=== PATIENT | female | born 1985 | race Caucasian/White ===

== ENCOUNTER 2020-11-07 19:16 | Inpatient (IN) ==
[~2020-11-07 19:16] MED LIST: AZITHROMYCIN 500 MG in DEXTROSE 5% 250 ML IV SCH
[2020-11-07] MEDS ORDERED: LACTATED RINGER'S 1,000 ML IV SCH (21:30)
[2020-11-07] MEDS ORDERED: MoRPHine SULFATE PF 1 MG/ML 10 ML AMP/VIAL ONE (21:33)
[2020-11-07] MEDS ORDERED: CITRIC ACID/SODIUM CITRATE 15 ML UDC ONE (21:33)
[2020-11-07] MEDS ORDERED: ePHEDrine sulfate 50 MG/ML SYR ONE (21:33)
[2020-11-07] MEDS ORDERED: OXYTOCIN 10 UNITS/ML VIAL ONE (21:33)
--- NOTE | 2020-11-07 21:36 | History & Physical Report ---
Date of Service November 07, 2020 Assessment & Plan (1) premature rupture of membranes (PPROM) with unknown onset of labor: 35 y/o at 34 1/7 wga presents after PPROM. The completion of this note was delayed due to pt care. VSS Fetus cat 1 PPROM - on initial presentation, I did present to bedside where pt was resting comfortably and denying any abdominal pain. Shortly after my presentation to the room, I was called to delivery. During this time, nursing reports the pt was still comfortable. After I exited the delivery, nursing was told by the patient that she had become uncomfortable and so she relayed this to me. Within a few minutes, I was able to present to bedside and pt noted that ctx had actually begun while she was in the bed and rapidly worsened. SSE demonstrated gross pooling in the speculum SVE demonstrated cervix to be 3/75/-2 and cephalic. Due to apparent discomfort and contractions every few minutes, discussed that I would not be able to transfer her as would be preferred by peds team due to GA as I thought this would be unsafe and recommended delivery. I did offer vs CS as she had a CS previously scheduled and pt noted that she desired CS. Informed consent was obtained and anesthesia and peds teams were made aware. As teams were getting ready, pt continued to rapidly become more uncomfortable and so she was checked again approx 30 minutes later and she was 8cm. She was again asked if she would like a as she had previously noted that if she showed up in labor, she would want a vaginal delivery. Consent for including risk for uterine rupture being 1% and potential subsequent catastrophic results were reviewed and she verbalized understanding and desired to move forward. consent was then signed. Shortly thereafter, she then progressed to complete. Please see delivery note for details -GBS, GC/CT, UCx, UDS were obtained Epidural obtained History of Present Illness Chief Complaint: SROM, ctx Primary Care Provider: ALEJA PCP 35 y/o at 34 1/7 wga w/ MAGGIE 12/18 by LMP presents with complaint of LOF around 430pm. Had sex this AM around 1030 and had a few BH ctx. Around 430, she went to the bathroom because she felt like she was leaking but continued to leak afterwards and subsequently called and told to come in. On arrival, +FM and LOF, denied ctx or VB. PNI: CS x 1 ([facility]) - NRFHT after PPROM, failed vacuum PPROM/PTD at 36 wks Subutex use - 22mg, 16 in AM and 6 in PM w/ [facility] AMA BMI 42 Past OBGYN Hx: G1 2017 at 36 wks - PPROM, failed vacuum, NRFHT G2 current Menarche 10, regular cycles Allergies Allergy/AdvReac Type Severity Reaction Status Date / Time sulfamethoxazole Allergy hives, Verified 11/04/20 16:13 [From Bactrim] vertigo trimethoprim [From Bactrim] Allergy hives, Verified 11/04/20 16:13 vertigo Home Medications Medication Instructions Recorded Confirmed Type prenat.vits,anjel,vtc-tcec-nqzoj 1 tab PO DAILY 05/04/20 11/07/20 History buprenorphine HCl See Rx Instructions .ROUTE .COMPLEX 11/07/20 11/07/20 History Patient History Medical History History of chicken pox Opioid abuse Surgical History S/P appendectomy S/P section S/P dilatation and curettage S/P unilateral salpingo-oophorectomy left Family History Mother Epilepsy Father Epilepsy Grandmother (Maternal) Diabetes Denies family history of Ovarian cancer Breast cancer Colorectal cancer Social History (Updated 11/07/20 @ 23:15 by Lucila Mendiola MD) Smoking Status: Never smoker Cigarettes Per Day: 10; Hx Alcohol Use: No Hx Substance Use: Yes Substance Use Type Other:: buprenorphine Preferred Language: Sinhala Bad Work Gatherer Required: No Beliefs That Will Affect Care: None marital status: marital status details: Matti Holderchristian (33) [phone] Current Living Situation: Spouse current occupational status: employed current occupation: [employer] Other Information That Helps Us Care for You: No Feels Safe at Home: Yes Safety Concerns: Feels Safe At This Time Assistive Devices: None Physical Exam Constitutional: WD/WN, vitals as above Respiratory: normal respiratory effort; no respiratory distress and no labored breathing Psychiatric: A+Ox3, euthymic affect Genitourinary: OB Exam Abdomen: + vertex Manual OB Exam: + cervical dilation 3 cm, + cervical effacement 90%, + station -2 and + amniotic fluid (grossly ruptured, obvious pooling with insertion of speculum) clear and nitrazine positive OB Exam Monitor Tracing: + external FHT monitor used, + external uterine monitor used (initially irreg ctx, became q3-4) and + category I (135/mod/+accel/decel) Results & Data ([facility]) Vital Signs (Past 12 Hours) Vital Signs Temp Pulse Resp BP 11/07/20 19:56 78 131/74 11/07/20 19:34 98.6 F 18 11/07/20 19:32 98 H 143/86 H Laboratory Results OB Labs: Blood Type O Positive 05/11/20 Antibody Screen NEGATIVE 05/11/20 Hemoglobin 12.0 g/dL (12.0-16.0) 10/02/20 Hematocrit 35.0 % (37-47) L 10/02/20 Mean Corpuscular Volume 91.5 fL (80-100) 05/11/20 Platelet Count 250 K/uL (130-400) 05/11/20 Rubella IgG Antibody Immune (Immune) 05/11/20 Rapid Plasma Reagin Nonreactive (Nonreactive) 05/11/20 Hepatitis B Surface Antigen Neg (Neg) 05/11/20 HIV (1&2) Ab and P24 Ag, 4th Gener Neg (Neg) 05/11/20 Glucose 1 Hour 50 gm Load 125 mg/dl (70-130) 10/02/20 Maternal Serum Alpha Fetoprotein 39.6 ng/mL 07/08/20 OB Optional Labs: Chlamydia trachomatis RNA NOT DETECTED (NOT DETECTED) 05/11/20 Neisseria gonorrhoeae RNA NOT DETECTED (NOT DETECTED) 05/11/20 Alpha Fetoprotein Triple Screen SEE NOTE 07/08/20 Labs Reviewed: panorama low risk 06/08/20 Diagnostic Findings Anterior placenta 10/16 EFW 88% Code Status & VTE Plan VTE Prophylaxis Plan VTE Prophylaxis will be ordered: Yes Coding Level of Care Code None Diagnoses premature rupture of membranes (PPROM) with unknown onset of labor O42.919
[2020-11-07] MEDS ORDERED: BUPIVACAINE 0.25% 30 ML VIAL ONE (21:40)
[2020-11-07] MEDS ORDERED: ePHEDrine sulfate 50 MG/ML AMP ONE (21:40)
[2020-11-07] MEDS ORDERED: SODIUM CHLORIDE 0.9% INJ 10 ML VIAL ONE (21:40)
[2020-11-07] MEDS ORDERED: fentaNYL citrate 100 MCG/2 ML VIAL ONE (21:40)
[2020-11-07] MEDS ORDERED: fentaNYL 2MCG/ML ROPIVACAINE 1.25MG/ML 100 ML BAG EPI ONE (21:41)
[2020-11-07] MEDS ORDERED: PENICILLIN G POTASSIUM 6 MU in DEXTROSE 5% 250 ML IV ONE (21:43)
[2020-11-07 21:45] LABS: Hematocrit (blood only) 35.4 % (37-47); Hemoglobin 12.7 g/dL (12.0-16.0); Mean Corpuscular Hemoglobin 32.9 pg (25-34); Mean Corpuscular Volume 91.7 fL (80-100); Platelet Count 258 K/uL (130-400); RDW Coefficient of Variation 13.4 % (11.5-14.5); RDW Standard Deviation 44.7 fL (36.4-46.3); Red Blood Count 3.86 M/uL (4.2-5.4); White Blood Count 14.52 K/uL (4.8-10.8)
[2020-11-07] MEDS ORDERED: CITRIC ACID/SODIUM CITRATE 15 ML UDC PO SCH (21:45)
[2020-11-07 21:46] LABS: Mean Corpuscular Hgb Conc 35.9 g/dL (32-36)
[2020-11-07] MEDS ORDERED: OXYTOCIN 30 UNITS/500ML NSS ONE (21:51)
--- NOTE | 2020-11-07 22:09 | Anesthesiology Consultation ---
Date of Service November 07, 2020 Assessment & Plan Chart Review Chart Review: Acceptable Risk for Labor Epidural Consults Requested none History Surgery Operation Date: 11/07/20 21:30 Proposed Procedures p Section in LD - Lucila Mendiola MD Height/Weight Height: 5 ft 5 in Weight: 113.398 kg Allergies Allergy/AdvReac Type Severity Reaction Status Date / Time sulfamethoxazole Allergy hives, Verified 11/04/20 16:13 [From Bactrim] vertigo trimethoprim [From Bactrim] Allergy hives, Verified 11/04/20 16:13 vertigo Medications Home Medications Medication Instructions Recorded Confirmed Last Taken prenat.vits,anjel,paj-jbyv-zemnl 1 tab PO DAILY 05/04/20 11/07/20 11/07/20 08:00 buprenorphine HCl See Rx Instructions .ROUTE .COMPLEX 11/07/20 11/07/20 Unknown Past Medical History Medical History History of chicken pox Opioid abuse Past Family History Family History Mother Epilepsy Father Epilepsy Grandmother (Maternal) Diabetes Denies family history of Ovarian cancer Breast cancer Colorectal cancer Past Surgical History Surgical History S/P section S/P dilatation and curettage S/P unilateral salpingo-oophorectomy Social History Smoking Status: Never smoker tobacco type: cigarettes Smoking cigarettes per day: 10 Hx Alcohol Use: No Hx Substance Use: Yes substance use type: does not use Substance Use Type Other:: suboxane - currently on Physical Exam Vital Signs Last Vital Signs Temp 37.0 C 11/07/20 19:34 Pulse 103 H 11/07/20 21:54 Resp 18 11/07/20 19:34 BP 141/64 H 11/07/20 21:54 Testing Laboratory Results 11/07/20 21:36
[2020-11-07] MEDS ORDERED: LIDOCAINE 1% LOCAL 20 ML VIAL ONE (22:12)
--- NOTE | 2020-11-07 22:55 | Delivery Summary ---
Vaginal Delivery Summary Date of Service November 07, 2020 PREOPERATIVE DIAGNOSIS: 1. Single intrauterine at 34 1/7 wga 2. History of CS x 1 3. premature rupture of membranes 4. labor 5. History of PPROM and PTD 6. AMA 7. Subutex use POSTOPERATIVE DIAGNOSIS: 1. Single intrauterine at 34 1/7 wga 2. History of CS x 1 3. premature rupture of membranes 4. labor 5. History of PPROM and PTD 6. AMA 7. Subutex use 8. Suspected chorioamnionitis 9. Delivered PROCEDURE: 1. Vaginal after SURGEON: Lucila Mendiola MD ANESTHESIA: Epidural. ESTIMATED BLOOD LOSS: 300 mL FLUIDS: Continuous LR. URINE OUTPUT: None. COMPLICATIONS: None. CONDITION: Stable. INDICATIONS: 35 y/o at 34 1/7 wga presented with complaint of LOF. On initial presentation, she denies abdominal pain or contractions. While awaiting evaluation, nursing noted that she rapidly became more uncomfortable. SSE demonstrated gross pooling in the speculum while SVE demonstrated cervix to be 3/75/-2 and cephalic. Due to apparent discomfort and contractions every few minutes, discussed that I would not be able to transfer her as would be preferred by peds team due to GA as I thought this would be unsafe and recommended delivery. I did offer vs CS as she had a CS previously scheduled and pt noted that she desired CS. Informed consent was obtained and anesthesia and peds teams were made aware. As teams were getting ready, pt continued to rapidly become more uncomfortable and so she was checked again approx 30 minutes later and she was 8cm. She was again asked if she would like a as she had previously noted that if she showed up in labor, she would desire . Consent for including risk for uterine rupture being 1% and potential subsequent catastrophic results were reviewed and she verbalized understanding and desired to . consent was then signed. Penicillin was initiated, however incomplete due to rapid labor. Epidural was able to be obtained. She then progressed to complete and desired to push. FINDINGS: A viable male infant with Apgars of 3, 6, and 8 at 1, 5, and 10 minutes respectively. Of note, fluid was noted to have very foul odor, suspicious for chorioamnionitis. SPECIMEN: Cord gases, cord blood, placenta OPERATIVE REPORT: The patient progressed to 10 cm, 100% effaced and +2 station, pushed over intact perineum with anesthesia to deliver a viable male infant, Apgars as above. Head of delivered in ELLA position. No nuchal cord was present. Body and shoulders were delivered without difficulty. Delayed cord clamping was deferred due to non-vigorous and was delivered to awaiting pediatrics staff. Cord was clamped and cut. Cord segment and blood was obtained. Placenta delivered spontaneously intact with 3-vessel cord. IV oxytocin and fundal massage were given for excellent hemostasis. Vagina, cervix, perineum, and placenta were inspected. A vaginal laceration was noted and repaired in the usual fashion using 3-[address]-1. Sponge and needle counts correct x2. No sponges were left behind. Mother and stable in immediate period. Vaginal Delivery Summary (Repair of vaginal laceration) MNP Vaginal Delivery Charge Vaginal Delivery Codes: 20607 global code for the antepartum, delivery, and post- Delivery Type Details: (Repair of vaginal laceration)
[2020-11-07 23:09] LABS: Base Excess Cord Arterial Bld -7.5 mEq/L (-9-1.8); CO2 Cord Arterial Blood 68 mmHg (39.1-73.5); HCO3 Cord Arterial Blood 23 mmol/L (19.7-28.5); Oxygen Sat Cord Arterial Blood < 60.0 % (<60); pH Cord Arterial Blood 7.14 (7.1-7.38)
[2020-11-07 23:10] LABS: PO2 Cord Arterial Blood < 10 mmHg (4.1-31.7)
[2020-11-07 23:11] LABS: Base Excess Cord Venous Blood -7.4 mEq/L (-7.7-1.9); Cord Venous Blood HCO3 23 mmol/L (18.4-26.8); Cord Venous Blood PCO2 68 mmHg (30.4-57.2); Cord Venous Blood PO2 15 mmHg (14.1-43.3); Cord Venous Blood pH 7.15 (7.20-7.44); O2 Saturation Cord Venous Bld < 60.0 % (<68)
--- NOTE | 2020-11-07 23:28 | Anesthesia Procedure Note ---
Date of Service November 07, 2020 Anesthesia Post Epidural Note Vital Signs Vital Signs: Temp Pulse Resp BP 37.0 C 71 18 115/60 11/07/20 19:34 11/07/20 23:23 11/07/20 19:34 11/07/20 23:23 Notes Mental Status: alert / awake / arousable Nausea / Vomiting: adequately controlled Pain: adequately controlled Airway Patency, RR, SpO2: stable & adequate BP & HR: stable & adequate Hydration State: stable & adequate Neuraxial Anesthesia: was administered and sensory block is resolving Anesthetic Complications: no major complications apparent and Pt Satisfied with anesthetic care Epidural: Removed without complications and With tip intact
[2020-11-07] MEDS ORDERED: SUPERCREAM 0.870% 15 GM JAR EXT PRN (23:41)
[2020-11-07] MEDS ORDERED: bisacodyL 10 MG SUPP PR PRN (23:41)
[2020-11-07] MEDS ORDERED: BENZOCAINE 20% AER SPR 82.5 GM CAN EXT PRN (23:41)
[2020-11-07] MEDS ORDERED: OXYTOCIN 30 UNITS/500 ML BAG IV PRN (23:41)
[2020-11-07] MEDS ORDERED: HYDROCORTISONE ACETATE 25 MG SUPP PR PRN (23:41)
[2020-11-07] MEDS ORDERED: DIPHTHERIA/TETANUS/PERTUSSIS 0.5 ML SYR/VIAL IM ONE (23:41)
[2020-11-08 00:17] LABS: Amphetamines+Metham, Urine Neg (Neg); Barbiturates, Urine Neg (Neg); Benzodiazepine, Urine Neg (Neg); Cocaine, Urine Neg (Neg); MDMA (Ecstacy), Urine Neg (Neg); Methadone, Urine Neg (Neg); Opiate, Urine Neg (Neg); Phencyclidine, Urine Neg (Neg)
[2020-11-08] MEDS: IBUPROFEN 600 MG TAB PO PRN ×3 (03:59→20:27)
[2020-11-08 06:34] LABS: Hematocrit (blood only) 31.1 % (37-47); Hemoglobin 10.7 g/dL (12.0-16.0); Mean Corpuscular Hemoglobin 32.8 pg (25-34); Mean Corpuscular Hgb Conc 34.4 g/dL (32-36); Mean Corpuscular Volume 95.4 fL (80-100); Mean Platelet Volume 10.3 fL (7.4-10.4); Platelet Count 230 K/uL (130-400); RDW Coefficient of Variation 13.4 % (11.5-14.5); RDW Standard Deviation 46.5 fL (36.4-46.3); Red Blood Count 3.26 M/uL (4.2-5.4); White Blood Count 12.94 K/uL (4.8-10.8)
[2020-11-08] MEDS: PRENATAL VITAMIN 1 TAB PO SCH (08:23)
[2020-11-08] MEDS: DOCUSATE SODIUM 100 MG CAP PO SCH ×2 (08:23→20:27)
[2020-11-08] MEDS: FERROUS SULFATE 325 MG TAB PO SCH (08:23)
[2020-11-08] MEDS: buprenorphine HCL 8 MG SUBL SL SCH ×2 (08:24→08:30)
--- NOTE | 2020-11-08 10:59 | Obstetrical Progress Note ---
Date of Service November 08, 2020 Assessment & Plan (1) state: 35 yo PP1 from after PPROM and PTL, doing well -Meeting all pp milestones -O+/rubella immune -f/u 6 weeks for appt -pt strongly desires d/c at 24 hrs due to baby having been transferred. I think as long as ok today, can go after 24 hr parish but would rec temperature monitoring after d/c due to odor noted in fluid at delivery. However, if any issues, rec stay overnight again. pt in agreement Subjective Ambulation: ambulating normally Voiding: no voiding problems Passing Gas:: Yes Diet Tolerance:: regular diet Lochia:: Small Feeding Type:: breast feeding Pain well managed with medication Review of Systems Denies fevers, chills, n/v, WATKINS, CP, SOB Physical Exam Constitutional WD/WN, vitals as above no acute distress Respiratory normal respiratory effort, lungs clear to auscultation Cardiovascular RRR, no murmur, no edema Gastrointestinal (Abdomen) Inspection/Auscultation: + abdominal surgical scar (c/d/i) Percussion/Palpation: abdomen soft; abdomen nontender fundus firm at umbilicus and NT Musculoskeletal BLE symmetric, nonerythematous, nontender Results & Data ([facility]) Vital Signs (Past 12 Hours) Vital Signs Temp Pulse Pulse Resp BP BP Pulse Ox 11/08/20 08:38 98.2 F 59 L 20 99/62 L 11/08/20 04:00 98.2 F 64 18 143/74 H 97 11/08/20 01:30 98.4 F 76 76 18 120/74 120/74 98 11/08/20 00:43 90 135/74 11/08/20 00:33 72 119/55 L 11/08/20 00:23 71 119/64 11/08/20 00:05 18 11/08/20 00:03 82 120/64 11/07/20 23:53 88 111/59 L 11/07/20 23:43 63 114/63 11/07/20 23:35 18 11/07/20 23:33 54 L 113/63 11/07/20 23:23 71 115/60 11/07/20 23:20 18 11/07/20 23:13 58 L 121/61 11/07/20 23:05 18 11/07/20 23:03 70 120/59 L
[2020-11-08] MEDS: ACETAMINOPHEN 325 MG TAB PO PRN ×2 (11:24→21:56)
[2020-11-08] MEDS: buprenorphine HCL 2 MG SUBL SL SCH (17:19)
[2020-11-08] MEDS ORDERED: bisacodyL 5 MG TABEC PO SCH (20:00)
[2020-11-08] MEDS ORDERED: GENTAMICIN CONSULT ACTIVE PRN (22:17)
--- NOTE | 2020-11-08 22:23 | Obstetrical Progress Note ---
Date of Service November 08, 2020 Assessment & Plan (1) Endometritis: Suspect endometritis due to foul odor at delivery, temp and uterine tenderness. Due to rapidity of delivery and no treatment either, will start amp/gent/clinda and order CBC. Pt aware will not be able to be discharged as she would like to see baby, however, needs tx before can go Admission and Anticipated Discharge Date Admission Date: November 07, 2020 Subjective Nursing made me aware of T38. Pt endorsing chills and overall feeling poor with myalgias, fatigued, now feeling febrile. Had cramping earlier. Denies foul discharge, WATKINS, CP, SOB, foul odor with urine. Physical Exam Constitutional: WD/WN, vitals as above Respiratory: normal respiratory effort, lungs clear to auscultation Cardiovascular: RRR, no murmur, no edema Gastrointestinal (Abdomen): Inspection/Auscultation: abdomen normal to inspection Percussion/Palpation: + abdomen tender (uterus mod tender to palpation) and abdomen soft; no guarding Results & Data ([facility]) Vital Signs (Past 12 Hours) Vital Signs Temp Pulse Resp BP Pulse Ox 11/08/20 21:52 100.8 F H 11/08/20 20:00 99.9 F H 102 H 18 125/81 11/08/20 18:58 98.1 F 71 18 115/75 97 11/08/20 16:00 98.1 F 71 18 115/75 11/08/20 12:30 98.1 F 58 L 20 114/66 PG Care Time/CCT Total # of Minutes Spent Total Time Spent with Patient: Total time spent is greater than 50% in coordination of care (as documented) at patient's floor/unit and/or counseling patient: Coding Level of Care Code None Diagnoses Endometritis N71.9
[2020-11-08 22:36] LABS: Basophils # (auto) 0.02 K/uL (0-0.2); Basophils % (auto) 0.2 %; Eosinophils # (auto) 0.02 K/uL (0-0.5); Eosinophils % (auto) 0.2 %; Hematocrit (blood only) 35.3 % (37-47); Hemoglobin 12.1 g/dL (12.0-16.0); Immature Granulocytes # (auto) 0.03 K/uL (0.00-0.02); Immature Granulocytes % (auto) 0.2 %; Lymphocytes # (auto) 1.05 K/uL (1.2-3.4); Lymphocytes % (auto) 8.7 %; Mean Corpuscular Hemoglobin 33.5 pg (25-34); Mean Corpuscular Volume 97.8 fL (80-100); Monocytes # (auto) 1.25 K/uL (0.11-0.59); Monocytes % (auto) 10.4 %; Neutrophils # (auto) 9.68 K/uL (1.4-6.5); Neutrophils % (auto) 80.3 %; Platelet Count 212 K/uL (130-400); RDW Coefficient of Variation 13.8 % (11.5-14.5); RDW Standard Deviation 49.4 fL (36.4-46.3); Red Blood Count 3.61 M/uL (4.2-5.4); White Blood Count 12.05 K/uL (4.8-10.8)
[2020-11-08 22:46] LABS: Mean Corpuscular Hgb Conc 34.3 g/dL (32-36)
[2020-11-08] MEDS: AMPICILLIN 2,000 MG in SODIUM CHLOR 0.9% AD-VAN 100 ML IV SCH (22:51)
[2020-11-08] MEDS ORDERED: GENTAMICIN SULFATE 400 MG in DEXTROSE 5% 100 ML IV SCH (23:00)
[2020-11-08 23:57] LABS: Creatinine Clr Calc Pharmacy 132.5 ml/min; Est GFR (African American) 121.9 ml/min; Est GFR (Non-African American) 105.2 ml/min
[2020-11-09] MEDS: IBUPROFEN 600 MG TAB PO PRN ×3 (00:02→18:11)
[2020-11-09] MEDS: CLINDAMYCIN 900 MG in DEXTROSE 5% 50 ML IV SCH ×3 (00:03→17:19)
[2020-11-09] MEDS: GENTAMICIN SULFATE IV SCH (00:59)
[2020-11-09] MEDS: DEXTROSE 5% IV SCH (00:59)
[2020-11-09] MEDS: NICOTINE 21 MG/24 HR TDSY TD SCH ×2 (00:59→08:30)
[2020-11-09 01:48] LABS: Appearance Urine Turbid (Clear); Bilirubin Urine Negative (Negative); Blood Urine 3+ (Negative); Color Urine Yellow; Glucose Urine UA Negative (Negative); Ketones Urine Negative (Negative); Leukocyte Esterase Urine 3+ (Negative); Nitrite Urine Positive (Negative); Protein Urine 1+ (Negative); RBC Urine Automated >30 /hpf (0-4); Specific Gravity Urine 1.017 (1.000-1.030); Urobilinogen Urine Negative (Negative); WBC Urine Automated >30 /hpf (0-5); pH Urine 6.5 (4.5-7.5)
[2020-11-09 02:20] LABS: Cast Urine Automated 0 /lpf (0-5); Epithelial Cell Urine Auto >30 /lpf (0-5); Mucus Urine Present (None Prsent)
[2020-11-09 02:21] LABS: Bacteria Urine Automated 1+ (Negative)
[2020-11-09] MEDS: AMPICILLIN 2,000 MG in SODIUM CHLOR 0.9% AD-VAN 100 ML IV SCH ×4 (05:32→23:00)
--- NOTE | 2020-11-09 05:56 | Pharmacy Report ---
Pharmacy Abx Initial Consult - Date of Service November 09, 2020 - Pharmacy Dosing Scope Date of Consult: 11/08/20 Consultation requested by: Dr. Briscoe Pharmacy is consulted to initiate IV Gentamicin dosing therapy, order appropriate labs and adjust drug dose/frequency. - Subjective The patient is a 35 year old F admitted on 11/07/20 21:20 for labor and delivery. Patient is and developed possible Endometritis. Dr. Mendiola started IV Ampicillin 2gm IV every 6 hours, Clindamycin 900mg every 8 hours and Gentamicin per pharmacy. I ordered baseline serum creatinine to assure that patients CrCL was greater than 60ml/min. Pharmacy will continue to monitor and dose Gentamicin going forward. - Objective Height: 5 ft 5 in Weight: 113.398 kg Vital Signs (Past 12hrs): Vital Signs Temp Pulse Resp BP Pulse Ox 11/09/20 01:05 37.1 C 11/08/20 23:50 38.2 C H 97 H 20 110/65 96 11/08/20 21:52 38.2 C H 11/08/20 20:00 37.7 C H 102 H 18 125/81 11/08/20 18:58 36.7 C 71 18 115/75 97 Lab Results (24hrs): Laboratory Tests (24 Hours) 11/08/20 11/08/20 11/08/20 23:24 22:27 06:13 WBC 12.05 H 12.94 H Neut # (Auto) 9.68 H Creatinine 0.73 Est Cr Clr Drug Dosing 132.5 Micro Results: 11/09/20 01:00 Urine Culture - Pending Urine,Clean Catch 11/07/20 22:26 Urine Culture - Pending Urine,Straight Cath - Assessment & Plan Assessment 35 year old F with Endometritis Plan Gentamicin * Patient meets criteria for extended-interval aminoglycoside dosing * Dose: 570mg (5 mg/kg) based on actual body weight every 24 hours * Will monitor renal function and will check levels if therapy exceeds 72 hours Pharmacy will continue to follow and will adjust dose/frequency as necessary. Thank you.
[2020-11-09] MEDS: ACETAMINOPHEN 325 MG TAB PO PRN ×2 (06:41→17:25)
--- NOTE | 2020-11-09 06:45 | Obstetrical Progress Note ---
Date of Service November 09, 2020 Assessment & Plan (1) state: 35 yo PP2 from after PPROM and PTL -O+/rubella immune/formula -encourage to ambulate today when feeling better from endometritis -f/u 6 weeks for appt (2) Endometritis: Dx w/ endometritis evening of 11/08 due to temp, fundal tenderness -started on amp/gent/clinda, plan to continue for 24-48 hours afebrile -Last temp this AM but not yet on antibiotics for 24 hours, will continue to monitor -tylenol/ibuprofen to defervesce -UA suggestive of UTI, however this was clean catch vs the straight cath from admission UA so suspect lochia is affecting how it looks as she denies urinary symptoms Subjective Ambulation: ambulating normally Voiding: no voiding problems Passing Gas:: Yes Diet Tolerance:: regular diet Lochia:: Small Feeding Type:: bottle feeding Pain well managed with medication but does have same worsened uterine tenderness from last evening. Feels febrile and intermittent chills. Denies pain or burning with urination, pressure symptoms Review of Systems Denies n/v, WATKINS, CP, SOB Physical Exam Constitutional WD/WN, vitals as above no acute distress Respiratory normal respiratory effort, lungs clear to auscultation Cardiovascular RRR, no murmur, no edema Gastrointestinal (Abdomen) Percussion/Palpation: abdomen soft; abdomen nontender fundus firm at umbilicus, tender to palpation Musculoskeletal BLE symmetric, nonerythematous, nontender Results & Data ([facility]) Vital Signs (Past 12 Hours) Vital Signs Temp Pulse Resp BP Pulse Ox 11/09/20 05:30 101.1 F H 107 H 20 120/72 98 11/09/20 01:05 98.8 F 11/08/20 23:50 100.8 F H 97 H 20 110/65 96 11/08/20 21:52 100.8 F H 11/08/20 20:00 99.9 F H 102 H 18 125/81 11/08/20 18:58 98.1 F 71 18 115/75 97 Laboratory Results 11/09/20 11/08/20 11/08/20 Range/Units 01:00 23:24 22:27 WBC 12.05 H (4.8-10.8) K/uL RBC 3.61 L (4.2-5.4) M/uL Hgb 12.1 (12.0-16.0) g/dL Hct 35.3 L (37-47) % MCV 97.8 (80-100) fL MCH 33.5 (25-34) pg MCHC 34.3 (32-36) g/dL RDW Std Deviation 49.4 H (36.4-46.3) fL RDW Coeff of Aleksey 13.8 (11.5-14.5) % Plt Count 212 (130-400) K/uL MPV 10.0 (7.4-10.4) fL Immature Gran % (Auto) 0.2 % Neut % (Auto) 80.3 % Lymph % (Auto) 8.7 % Gates % (Auto) 10.4 % Eos % (Auto) 0.2 % Baso % (Auto) 0.2 % Neut # (Auto) 9.68 H (1.4-6.5) K/uL Lymph # (Auto) 1.05 L (1.2-3.4) K/uL Gates # (Auto) 1.25 H (0.11-0.59) K/uL Eos # (Auto) 0.02 (0-0.5) K/uL Baso # (Auto) 0.02 (0-0.2) K/uL Immature Gran # (Auto) 0.03 H (0.00-0.02) K/uL Creatinine 0.73 (0.6-1.2) mg/dl Est Cr Clr Drug Dosing 132.5 ml/min Est GFR ( Amer) 121.9 ml/min Est GFR (Non-Af Amer) 105.2 ml/min Urine Color Yellow Urine Appearance Turbid A (Clear) Urine pH 6.5 (4.5-7.5) Ur Specific [place] 1.017 (1.000-1.030) Urine Protein 1+ H (Negative) Urine Glucose (UA) Negative (Negative) Urine Ketones Negative (Negative) Urine Blood 3+ H (Negative) Urine Nitrite Positive A (Negative) Urine Bilirubin Negative (Negative) Urine Urobilinogen Negative (Negative) Ur Leukocyte Esterase 3+ H (Negative) Urine WBC (Auto) >30 H (0-5) /hpf Urine RBC (Auto) >30 H (0-4) /hpf U Hyaline Cast (Auto) 0 (0-5) /lpf U Epithel Cells (Auto) >30 H (0-5) /lpf Urine Bacteria (Auto) 1+ H (Negative) Urine Mucus Present A (None Prsent) Urine Yeast Not Reportable
[2020-11-09 06:52] LABS: Hematocrit (blood only) 33.3 % (37-47); Hemoglobin 11.3 g/dL (12.0-16.0)
[2020-11-09] MEDS ORDERED: FLUCONAZOLE 50 MG TAB PO ONE (07:22)
[2020-11-09] MEDS: DOCUSATE SODIUM 100 MG CAP PO SCH ×2 (08:30→20:20)
[2020-11-09] MEDS: FERROUS SULFATE 325 MG TAB PO SCH (08:30)
[2020-11-09] MEDS: PRENATAL VITAMIN 1 TAB PO SCH (08:30)
[2020-11-09] MEDS: buprenorphine HCL 8 MG SUBL SL SCH (10:02)
[2020-11-09] MEDS: buprenorphine HCL 2 MG SUBL SL SCH (17:20)
[2020-11-09 19:17] LABS: Basophils # (auto) 0.01 K/uL (0-0.2); Basophils % (auto) 0.1 %; Eosinophils # (auto) 0.02 K/uL (0-0.5); Eosinophils % (auto) 0.1 %; Hematocrit (blood only) 33.1 % (37-47); Hemoglobin 11.1 g/dL (12.0-16.0); Immature Granulocytes # (auto) 0.03 K/uL (0.00-0.02); Immature Granulocytes % (auto) 0.2 %; Lymphocytes # (auto) 1.31 K/uL (1.2-3.4); Lymphocytes % (auto) 9.6 %; Mean Corpuscular Hemoglobin 32.5 pg (25-34); Mean Corpuscular Volume 96.8 fL (80-100); Mean Platelet Volume 10.3 fL (7.4-10.4); Monocytes # (auto) 0.94 K/uL (0.11-0.59); Monocytes % (auto) 6.9 %; Neutrophils # (auto) 11.37 K/uL (1.4-6.5); Neutrophils % (auto) 83.1 %; Platelet Count 199 K/uL (130-400); RDW Coefficient of Variation 13.9 % (11.5-14.5); RDW Standard Deviation 49.2 fL (36.4-46.3); Red Blood Count 3.42 M/uL (4.2-5.4); White Blood Count 13.68 K/uL (4.8-10.8)
[2020-11-09 19:22] LABS: Mean Corpuscular Hgb Conc 33.5 g/dL (32-36)
[2020-11-10] MEDS: CLINDAMYCIN 900 MG in DEXTROSE 5% 50 ML IV SCH ×3 (00:42→16:56)
[2020-11-10] MEDS: DEXTROSE 5% IV SCH (01:20)
[2020-11-10] MEDS: GENTAMICIN SULFATE IV SCH (01:20)
[2020-11-10] MEDS: ACETAMINOPHEN 325 MG TAB PO PRN (02:28)
[2020-11-10] MEDS: AMPICILLIN 2,000 MG in SODIUM CHLOR 0.9% AD-VAN 100 ML IV SCH ×3 (05:10→17:30)
--- NOTE | 2020-11-10 07:48 | Obstetrical Progress Note ---
Date of Service <Cornel Spencer MD - Last Filed: 11/10/20 07:50> November 10, 2020 Assessment & Plan <Cornel Spencer MD - Last Filed: 11/10/20 07:50> (1) state: - PNL: Rh pos, RI, GBS not done due to early delivery, COVID neg - Feels well today. Eating well, voiding well, ambulating well - Pain well controlled with ibuprofen 600mg Q4H PRN - Routine care -- OOB, ambulation, diet progression as tolerated - After discharge will have 6 week follow-up with Dr. Mendiola (2) Endometritis: - Dx w/ endometritis evening of 11/08 due to temp, fundal tenderness - started on amp/gent/clinda, has been on for over 24 hours--likely discontinue today vs continue for 48 hours -Last temp yesterday about 6PM -tylenol/ibuprofen prn to defervesce Subjective <Cornel Spencer MD - Last Filed: 11/10/20 07:50> Kandi is a 35 y/o female who is PPD #3 following at 34 1/7 weeks. She reports feeling well overall this morning. Mild abdominal cramping and 2/10 pain well managed on analgesics. Voiding well. Tolerating meals overnight without difficulty. Patient has been able to ambulate some. Has persistent lochia with some improvement this morning. Currently bottle feeding. Review of Systems Denies fever or chills. Denies shortness of breath or cough. Denies chest pain. Denies breast pain. Denies dysuria. Denies leg pain or leg swelling. Denies headache or changes in vision. Physical Exam <Cornel Spencer MD - Last Filed: 11/10/20 07:50> General: Alert, oriented. No acute distress. Cardiac: Regular rate and rhythm. No murmurs. Respiratory: Clear to auscultation bilaterally a/p, no wheezes/rales/rhonchi. No increased work of breathing. Symmetrical chest rise. No respiratory distress. Abdomen: Soft, nontender, nondistended. Bowel sounds present. Uterus: Uterine fundus firm, palpable ~2 cm below umbilicus, nontender. Lower Extremities: Some mild lower extremity edema. No deep calf pain. Raza's negative bilaterally. Results & Data ([facility]) <Cornel Spencer MD - Last Filed: 11/10/20 07:50> Vital Signs (Past 12 Hours) Vital Signs Temp Pulse Resp BP 11/10/20 05:15 36.8 C 76 18 105/71 11/10/20 02:28 36.7 C 11/09/20 23:35 36.8 C 69 16 96/63 L 11/09/20 20:15 36.8 C 89 16 112/71 <Natty Baca MD, FACOG - Last Filed: 11/10/20 08:22> Co-Signing Physician Notes Resident Physician Supervision Note: I was present with Dr. Spencer during the history and exam. I discussed the case with the resident and agree with the findings and plan as documented in the note. Any exceptions or clarifications are listed here: pt has been af for about 12hr, on triple abx. feels well. source considered endometritis. ff 2 down, nt. ext nt calves. cbc done yest pm due to temp spike to 102F, blood cx done x 2 and pending. urine cx likely ecoli uti as well but still pending. Will cont abx. Baby in [place] and doing well. Patient understands importance of making sure adequately treated/managed with her high fevers. She verbalized understanding. Will plan repeat cbc tomorrow am. cont abx. Documented By: Natty Baca MD, FACOG Resident Activity Tracking <Cornel Spencer MD - Last Filed: 11/10/20 07:50> Resident Involvement: Resident Care Provided Care Provided: OB Delivery
[2020-11-10] MEDS: IBUPROFEN 600 MG TAB PO PRN (07:55)
[2020-11-10] MEDS: DOCUSATE SODIUM 100 MG CAP PO SCH (07:55)
[2020-11-10] MEDS: FERROUS SULFATE 325 MG TAB PO SCH (07:55)
[2020-11-10] MEDS: PRENATAL VITAMIN 1 TAB PO SCH (07:55)
[2020-11-10] MEDS: buprenorphine HCL 8 MG SUBL SL SCH (07:55)
[2020-11-10] MEDS: NICOTINE 21 MG/24 HR TDSY TD SCH (08:59)
[2020-11-10 10:19] LABS: Creatinine Clr Calc Pharmacy 138.2 ml/min; Est GFR (African American) 128.3 ml/min; Est GFR (Non-African American) 110.7 ml/min
[2020-11-10 14:33] LABS: Chlamydia Trach RNA NOT DETECTED (NOT DETECTED); GC (Neis gonorrhoeae) RNA NOT DETECTED (NOT DETECTED)
[2020-11-10] MEDS: buprenorphine HCL 2 MG SUBL SL SCH (16:56)
--- NOTE | 2020-11-10 18:34 | Obstetrical Progress Note ---
Date of Service November 10, 2020 Assessment & Plan Admission and Anticipated Discharge Date Admission Date: November 07, 2020 Subjective Doing well. No pain. No fever for >24h. Would like to be discharged, as baby is at [place]. Feeling much better today than she did yesterday. On exam, no uterine tenderness. Discussed discharge instructions, will send Rx augmentin and diflucan to pharmacy. She is aware to call office if she develops fever, chills, pain, vaginal discharge, or any other concerning symptoms. Results & Data ([facility]) Vital Signs (Past 12 Hours) Vital Signs Temp Pulse Resp BP Pulse Ox 11/10/20 18:04 36.8 C 11/10/20 16:57 36.9 C 21 126/81 11/10/20 11:28 36.7 C 80 18 115/79 97 11/10/20 07:45 37.8 C H 96 H 18 120/79 97 PG Care Time/CCT Total # of Minutes Spent Total Time Spent with Patient: Total time spent is greater than 50% in coordination of care (as documented) at patient's floor/unit and/or counseling patient: Coding Level of Care Code None
== END 2020-11-10 20:35 | disposition home or self-care (01) | DRG 806 ==
LOC: OPB 19:16 → 4S1 19:17 → 4S2 11-08 01:10